=== PATIENT | female | born 1980 | race Caucasian/White ===

== ENCOUNTER → 2018-05-11 | Outpatient (CLI) | payer OTHER ==
--- NOTE | 2018-05-11 16:07 | RAD ---
EXAM: Pelvic sonogram. HISTORY: Pain. TECHNIQUE: Transabdominal and transvaginal sonographic imaging of the pelvis was performed. COMPARISON: None. FINDINGS: The uterus measures 8.3 x 6.2 x 4.9 cm. There is a complex fluid collection with suspected debris within the endometrial cavity measuring 2.8 x 2.4 x 1.3 cm. There is no clear endometrial thickening. The left ovary is obscured due to bowel gas. The right ovary is normal in size and demonstrates normal blood flow. There is no pelvic free fluid. IMPRESSION: 1. 2.8 x 2.4 x 1.3 cm complex fluid collection containing debris within the endometrial cavity. Given a history of prior endometrial ablation, this may be due to a post ablation seroma or hematoma. No clear endometrial thickening or blood flow is seen to suggest a solid lesion component. This can be better assessed with hysteroscopy if clinically indicated. 2. Obscured left ovary and sonographically unremarkable right ovary. Electronically signed by: Oanh Andersen MD (05/11/2018 4:05 PM) [place] [id number]
== END | disposition home or self-care (01) ==
LOC: US 14:29
PROVIDERS: ATTEND Nurse Practitioner Women's Health
DX: R10.2 Pelvic and perineal pain (principal)
CPT/HCPCS: 76830; 76856